=== PATIENT | male | born 1965 ===

== ENCOUNTER 2017-04-14 10:41 | Emergency (ER) | payer BC ==
[2017-04-14 10:53] VITALS: BP 119/69; PULSE 59; RESP 20; TEMP 98.6; O2SAT 98; BMI 23.3
--- NOTE | 2017-04-14 11:30 | ED PDOC ---
HPI: General Adult Chief Complaint (Provider): Facial pain, sinus pressure, and congestion History Per: Patient History/Exam Limitations: no limitations Onset/Duration Of Symptoms: Other (2 weeks) Additional Complaint(s): Patient is a 52 y/o male presenting to the emergency department for facial pain , sinus pressure, and congestion ongoing for two weeks with associated runny nose, mild headache, and malaise. Denies fever, chest pain, shortness of breath , and other complaints. PCP: none provided. Past Medical History Reviewed: Historical Data, Nursing Documentation, Vital Signs Vital Signs: Last Vital Signs Temp 98.6 F 04/14/17 10:52 Pulse 59 L 04/14/17 10:52 Resp 20 04/14/17 10:52 BP 119/69 04/14/17 10:52 Pulse Ox 98 04/14/17 11:41 - Medical History PMH: Denies: Chronic Kidney Disease - Surgical History Surgical History: Appendectomy - Family History Family History: States: Unknown Family Hx - Social History Alcohol: None Drugs: Denies - Immunization History Hx Influenza Vaccination: Yes - Home Medications Home Medications: Ambulatory Orders Medication Instructions Recorded Ibuprofen [Motrin] 600 mg PO Q6 PRN #15 tab 08/26/15 Ciprofloxacin 0.3% [Ciloxan 0.3% 1 drop BOTHEYES BID #1 bottle 11/04/15 Ophth SOLN] Naproxen [Naprosyn] 500 mg PO Q12H #20 tab 12/22/15 Cyclobenzaprine [Cyclobenzaprine 10 mg PO BID #15 tab 04/28/16 HCl] Ibuprofen [Motrin Tab] 600 mg PO Q6 #30 tab 04/28/16 traMADol [Ultram] 50 mg PO Q6 #16 tab 08/04/16 Ibuprofen [Motrin] 600 mg PO Q8 PRN #21 tab 09/16/16 Amoxicillin/Clavulanate [Augmentin 1 tab PO BID #14 tab 04/14/17 875 MG-125 MG] Fexofenadine/Pseudoephedrine 1 each PO BID PRN #14 tab.er.12h 04/14/17 [Alexandra-D 12 Hour Tablet] Fluticasone Propionate [Flonase 9.9 ml NS DAILY #1 spray.susp 04/14/17 Allergy Relief] - Allergies Allergies/Adverse Reactions: Allergies Allergy/AdvReac Type Severity Reaction Status Date / Time No Known Allergies Allergy Verified 08/04/16 21:51 Review of Systems ROS Statement: Except As Marked, All Systems Reviewed And Found Negative Constitutional: Positive for: Malaise. Negative for: Fever ENT: Positive for: Nose Congestion (and rhinorrhea), Other (Sinus pressure) Cardiovascular: Negative for: Chest Pain Respiratory: Negative for: Shortness of Breath Musculoskeletal: Positive for: Other (Facial pain) Neurological: Positive for: Headache (mild) Physical Exam - Reviewed Nursing Documentation Reviewed: Yes Vital Signs Reviewed: Yes - Physical Exam Appears: Positive for: Non-toxic, No Acute Distress Head Exam: Positive for: ATRAUMATIC, NORMAL INSPECTION, NORMOCEPHALIC Skin: Positive for: Normal Color, Warm, Dry Eye Exam: Positive for: Normal appearance ENT: Positive for: TM Is/Are (have fluid behind, bilaterally, mild), Pharyngeal Erythema (mild), Other (bilateral nares have purulent congestion with inflamed turbanance) Neck: Positive for: Normal, Painless ROM, Supple Cardiovascular/Chest: Positive for: Regular Rate, Rhythm. Negative for: Murmur Respiratory: Positive for: Normal Breath Sounds. Negative for: Accessory Muscle Use, Respiratory Distress Gastrointestinal/Abdominal: Positive for: Normal Exam, Soft. Negative for: Tenderness Extremity: Positive for: Normal ROM. Negative for: Pedal Edema Neurologic/Psych: Positive for: Alert, Oriented (x3) - ECG O2 Sat by Pulse Oximetry: 98 (RA) Pulse Ox Interpretation: Normal Medical Decision Making Medical Decision Making: Time: 11:15 Initial impression: Congestion Initial plan: Treat for sinusitis and follow up with ENT. 11:30 Upon provider reevaluation patient is feeling better, is medically stable, and requires no further treatment in the ED at this time. Patient will be discharged with Rx for Augmentin, Alexandra, and Flonase. Counseling was provided and all questions were answered regarding diagnosis and need for follow up with Dr. Yaron Lanier. There is agreement to discharge plan. Clinical impression: Sinusitis Scribe Attestation: Documented by Rossana Multani, acting as a scribe for Brendan Conde DO. Provider Scribe Attestation: All medical record entries made by the Scribe were at my direction and personally dictated by me. I have reviewed the chart and agree that the record accurately reflects my personal performance of the history, physical exam, medical decision making, and the department course for this patient. I have also personally directed, reviewed, and agree with the discharge instructions and disposition. Disposition - Clinical Impression Clinical Impression: Sinusitis - Patient ED Disposition Is Patient to be Admitted: No Counseled Patient/Family Regarding: Diagnosis, Need For Followup, Rx Given - Disposition Referrals: Yaron Lanier MD [Staff Provider] - Disposition: Routine/Home Disposition Time: 11:30 Condition: STABLE Additional Instructions: See ENT doctor if symptoms do not improve. Take medications as directed. Prescriptions: Amoxicillin/Clavulanate [Augmentin 875 MG-125 MG] 1 tab PO BID #14 tab Fexofenadine/Pseudoephedrine [Alexandra-D 12 Hour Tablet] 1 each PO BID PRN #14 tab.er.12h PRN Reason: Allergy Symptoms Fluticasone Propionate [Flonase Allergy Relief] 9.9 ml NS DAILY #1 spray.susp Instructions: Rhinosinusitis (ED) Forms: [employer] (Kyrgyz)
== END 2017-04-14 11:47 | disposition home or self-care (01) ==
LOC: H.ER 10:41
DX: J32.9 Chronic sinusitis, unspecified (principal)

== ENCOUNTER 2017-04-29 13:22 | Emergency (ER) | payer BC ==
[2017-04-29 13:22] VITALS: BMI 23.3
[2017-04-29 13:35] VITALS: BP 119/71; PULSE 61; RESP 16; TEMP 98.4; O2SAT 99
--- NOTE | 2017-04-29 14:01 | ED PDOC ---
Upper Extremity Pain/Injury Time Seen by Provider: 04/29/17 13:38 Chief Complaint (Nursing): Upper Extremity Problem/Injury Chief Complaint (Provider): Right wrist pain History Per: Patient History/Exam Limitations: no limitations Onset/Duration Of Symptoms: Other (2-3 weeks) Current Symptoms Are (Timing): Still Present Additional Complaint(s): Patient is a 52 y/o male with no significant past medical history presenting to the emergency department for worsening right wrist pain ongoing for 2-3 weeks with decreased range of motion. Notes taking Motrin this morning with no significant relief of pain. Denies injuries, fall, or other complaints. PCP: Dr. Rui Kulkarni Past Medical History Reviewed: Historical Data, Nursing Documentation, Vital Signs Vital Signs: Last Vital Signs Temp 98.4 F 04/29/17 13:32 Pulse 61 04/29/17 13:32 Resp 16 04/29/17 13:32 BP 119/71 04/29/17 13:32 Pulse Ox 99 04/29/17 13:32 - Medical History PMH: No Chronic Diseases, Chronic Kidney Disease - Surgical History Surgical History: Appendectomy - Family History Family History: States: No Known Family Hx - Living Arrangements Living Arrangements: With Family - Social History Current smoker - smoking cessation education provided: No Alcohol: None Drugs: Denies - Home Medications Home Medications: Ambulatory Orders Medication Instructions Recorded Ibuprofen [Motrin] 600 mg PO Q6 PRN #15 tab 08/26/15 Ciprofloxacin 0.3% [Ciloxan 0.3% 1 drop BOTHEYES BID #1 bottle 11/04/15 Ophth SOLN] Naproxen [Naprosyn] 500 mg PO Q12H #20 tab 12/22/15 Cyclobenzaprine [Cyclobenzaprine 10 mg PO BID #15 tab 04/28/16 HCl] Ibuprofen [Motrin Tab] 600 mg PO Q6 #30 tab 04/28/16 traMADol [Ultram] 50 mg PO Q6 #16 tab 08/04/16 Ibuprofen [Motrin] 600 mg PO Q8 PRN #21 tab 09/16/16 Amoxicillin/Clavulanate [Augmentin 1 tab PO BID #14 tab 04/14/17 875 MG-125 MG] Fexofenadine/Pseudoephedrine 1 each PO BID PRN #14 tab.er.12h 04/14/17 [Alexandra-D 12 Hour Tablet] Fluticasone Propionate [Flonase 9.9 ml NS DAILY #1 spray.susp 04/14/17 Allergy Relief] Ibuprofen [Motrin Tab] 800 mg PO Q8 PRN #20 tab 04/29/17 - Allergies Allergies/Adverse Reactions: Allergies Allergy/AdvReac Type Severity Reaction Status Date / Time No Known Allergies Allergy Verified 08/04/16 21:51 Review of Systems ROS Statement: Except As Marked, All Systems Reviewed And Found Negative Musculoskeletal: Positive for: Hand Pain (right wrist pain) Physical Exam - Reviewed Nursing Documentation Reviewed: Yes Vital Signs Reviewed: Yes - Physical Exam Appears: Positive for: Well, Non-toxic, No Acute Distress Head Exam: Positive for: NORMOCEPHALIC Skin: Positive for: Normal Color, Warm, Dry Eye Exam: Positive for: Normal appearance Neck: Positive for: Normal Extremity: Positive for: Normal ROM (to fingers on right hand), Tenderness ( right wrist with decreased range of motion, no snuff box tenderness). Negative for: Pedal Edema, Swelling Neurologic/Psych: Positive for: Alert, Oriented (x3) - ECG O2 Sat by Pulse Oximetry: 99 (RA) Pulse Ox Interpretation: Normal - Other Rad Right wrist x-ray X-Ray: Interpreted by Me, Viewed By Me X-Ray Interpretation: no fx, no dis Medical Decision Making Medical Decision Making: Time: 13:59 Initial impression: Right wrist pain Initial plan: Tylenol 975 mg PO Motrin 600 mg PO Right Wrist X-ray Reevaluation Patient aware that x-rays negative. Splint was applied. Prescription given for Motrin. Patient instructed to follow up with PMD or orthopedist, referral provided. Scribe Attestation: Documented by Rossana Multani, acting as a scribe for OBINNA Hernandez. Provider Scribe Attestation: All medical record entries made by the Scribe were at my direction and personally dictated by me. I have reviewed the chart and agree that the record accurately reflects my personal performance of the history, physical exam, medical decision making, and the department course for this patient. I have also personally directed, reviewed, and agree with the discharge instructions and disposition. Procedures - Splinting Location: right wrist Pre-Made Type: velcro Pre-Proc Neuro Vasc Exam: normal Post-Proc Neuro Vasc Exam: normal Disposition - Clinical Impression Clinical Impression: Wrist pain - Patient ED Disposition Is Patient to be Admitted: No Counseled Patient/Family Regarding: Studies Performed, Diagnosis, Need For Followup, Rx Given - Disposition Referrals: Lillie Dominguez MD [Staff Provider] - Rui Kulkarni MD [Medical Doctor] - Disposition: Routine/Home Disposition Time: 14:33 Condition: STABLE Additional Instructions: Ice and rest the affected area. Take prescription meds for pain as needed. Follow up with primary doctor or orthopedist for any persistent symptoms. Prescriptions: Ibuprofen [Motrin Tab] 800 mg PO Q8 PRN #20 tab PRN Reason: Pain, Moderate (4-7) Instructions: Wrist Sprain (ED) Forms: [employer] (Divehi)
--- NOTE | 2017-04-29 14:28 | RAD ---
PROCEDURE: Right Wrist Radiographs. HISTORY: pain for 3 weeks COMPARISON: None. FINDINGS: BONES: Bone alignment and mineralization are normal. There is no acute fracture or bone destruction. JOINTS: Normal. No dislocation. SOFT TISSUES: Normal. OTHER FINDINGS: None. IMPRESSION: No acute fracture, dislocation or significant degenerative osteoarthrosis.
== END 2017-04-29 15:10 | disposition home or self-care (01) ==
LOC: H.ER 13:22
DX: M25.531 Pain in right wrist (principal)

== ENCOUNTER 2017-08-05 07:33 | Emergency (ER) | payer BC ==
[2017-08-05 07:36] VITALS: BMI 24.0
[2017-08-05 07:38] VITALS: BP 122/74; PULSE 60; RESP 20; TEMP 97.6; O2SAT 98
--- NOTE | 2017-08-05 08:14 | ED PDOC ---
HPI: Headache Time Seen by Provider: 08/05/17 07:51 Chief Complaint (Nursing): Trauma Chief Complaint (Provider): Trauma History Per: Patient History/Exam Limitations: no limitations Current Symptoms Are (Timing): Still Present Additional Complaint(s): 52 year old male presents to the emergency department with a worsening headache after playing basketball, falling, and hitting his head on the ground 2 days ago. Associated with dizziness and mild neck pain. Denies focal weakness, vomiting, incoordination, back pain, head pain, loss of consciousness or any other complaints. Past Medical History Reviewed: Historical Data, Nursing Documentation, Vital Signs Vital Signs: Last Vital Signs Temp 97.6 F 08/05/17 07:36 Pulse 60 08/05/17 07:36 Resp 20 08/05/17 07:36 BP 122/74 08/05/17 07:36 Pulse Ox 98 08/05/17 07:36 - Medical History PMH: No Chronic Diseases Denies: Chronic Kidney Disease - Surgical History Surgical History: Appendectomy - Family History Family History: States: Unknown Family Hx - Social History Current smoker - smoking cessation education provided: No Alcohol: None Drugs: Denies - Immunization History Hx Influenza Vaccination: Yes - Home Medications Home Medications: Ambulatory Orders Medication Instructions Recorded Naproxen [Naprosyn] 500 mg PO BID PRN #14 tablet 08/05/17 - Allergies Allergies/Adverse Reactions: Allergies Allergy/AdvReac Type Severity Reaction Status Date / Time No Known Allergies Allergy Verified 08/05/17 07:43 Review of Systems Constitutional: Negative for: Other (Loss of consciousness) Physical Exam - Reviewed Nursing Documentation Reviewed: Yes Vital Signs Reviewed: Yes - Physical Exam Appears: Positive for: Non-toxic, No Acute Distress Head Exam: Positive for: ATRAUMATIC (Tenderness to the occipital scalp region. No scalp hematoma noted.), NORMOCEPHALIC Skin: Positive for: Normal Color, Warm, Dry Eye Exam: Positive for: Normal appearance, PERRL (Pupils are 2 ml and symmetrical) Neck: Positive for: Pain On Movement Of Neck (Paraspinal neck tenderness ) Cardiovascular/Chest: Positive for: Regular Rate, Rhythm. Negative for: Murmur Respiratory: Positive for: Normal Breath Sounds. Negative for: Accessory Muscle Use, Respiratory Distress Gastrointestinal/Abdominal: Positive for: Normal Exam, Soft. Negative for: Tenderness Extremity: Positive for: Normal ROM. Negative for: Tenderness, Pedal Edema Neurologic/Psych: Positive for: Alert, Oriented (x3) - ECG O2 Sat by Pulse Oximetry: 98 (RA) Pulse Ox Interpretation: Normal Medical Decision Making Medical Decision Making: Time: 753 Initial Impression: Headache status post fall Initial Plan: --Tylenol 650 mg PO --Cervical Spine CT --Head CT --Reevaluation Accession No. : [id number] Patient Name / ID : SHIKHA Dumont [id number] Exam Date : 08/05/2017 08:36:42 ( Approved ) Study Comment : Sex / Age : M / 52Y Creator : Simon Garner MD Dictator : Simon Garner MD Torch Shearer : Medical Charge Entry Specialist : Simon Garner MD Approver2 : Report Date : 08/05/2017 09:19:15 My Comment : PROCEDURE: CT HEAD WITHOUT CONTRAST. HISTORY: r/o ICH COMPARISON: 03/15/2011 TECHNIQUE: Axial computed tomography images were obtained through the head/brain without intravenous contrast. Radiation dose: Total exam DLP = 887.58 mGy-cm. This CT exam was performed using one or more of the following dose reduction techniques: Automated exposure control, adjustment of the mA and/or kV according to patient size, and/or use of iterative reconstruction technique. FINDINGS: HEMORRHAGE: No intracranial hemorrhage. BRAIN: No mass effect or edema. No atrophy or chronic microvascular ischemic changes. VENTRICLES: Unremarkable. No hydrocephalus. CALVARIUM: Unremarkable. PARANASAL SINUSES: Unremarkable as visualized. No significant inflammatory changes. MASTOID AIR CELLS: Unremarkable as visualized. No inflammatory changes. OTHER FINDINGS: None. IMPRESSION: Normal CT of the Head. No intracranial hemorrhage. Accession No. : [id number] Patient Name / ID : SHIKHA DERAS / [id number] Exam Date : 08/05/2017 08:38:54 ( Approved ) Study Comment : Sex / Age : M / 52Y Creator : Simon Garner MD Dictator : Simon Garner MD Torch Shearer : Medical Charge Entry Specialist : Simon Garner MD Approver2 : Report Date : 08/05/2017 09:26:20 My Comment : This report is currently processing and HAS NOT BEEN OFFICIALLY SIGNED BY THE PHYSICIAN - ESTIMATED TIME OF APPROVAL IS 08/05/2017 09:31. PROCEDURE: CT Cervical Spine without contrast HISTORY: Fall COMPARISON: None available. TECHNIQUE: Axial computed tomography images were obtained of the cervical spine without the use of intravenous contrast. Coronal and sagittal reformatted images were created and reviewed. Radiation dose: Total exam DLP = 431.78 mGy-cm. This CT exam was performed using one or more of the following dose reduction techniques: Automated exposure control, adjustment of the mA and/or kV according to patient size, and/or use of iterative reconstruction technique. FINDINGS: VERTEBRAE: Minimal compression deformity of the C4 through 6 vertebral bodies of indeterminate age. Normal vertebral alignment is maintained. There is straightening of the normal lordotic curvature indicating possible muscular spasm. Of the atlantoaxial articulation and odontoid process are intact. DISCS/SPINAL CANAL/NEURAL FORAMINA: Narrowing of the C5-6 and C6-7 intervertebral disc spaces is noted. The remaining disc spaces are maintained in height. There is mild central spinal stenosis at C3-4 and C4-5. There is central spinal stenosis noted at C5-6 and C6-7 with AP diameter of the canal measuring 9 mm and 8 mm, respectively at these levels. There is moderate foraminal stenosis on the right side at C5-6. PARASPINAL SOFT TISSUES: Unremarkable. OTHER FINDINGS: None. IMPRESSION: Mild compression deformity of the C4 through C6 vertebral bodies of indeterminate age. A significant central canal stenosis at C5-6 and C6-7. Multilevel degenerative disc disease. No definite acute fracture. Time: 0930 Upon provider reevaluation patient is feeling better, is medically stable, and requires no further treatment in the ED at this time. Patient will be discharged home with Rx for Naprosyn 500 mg. Counseling was provided and all questions were answered regarding diagnosis and need for follow up with Dr. Alan Browne MD and Dr. Dennys Mccormick MD. There is agreement to discharge plan. Return if symptoms persist or worsen. Clinical Impression: Head injury and concussion Scribe~Attestation: Documented by Adamaris Butterfield, acting as a scribe for Brendan Conde DO. Provider Scribe~Attestation: All medical record entries made by the Scribe were at my direction and personally dictated by me. I have reviewed the chart and agree that the record accurately reflects my personal performance of the history, physical exam, medical decision making, and the department course for this patient. I have also personally directed, reviewed, and agree with the discharge instructions and disposition. Disposition - Clinical Impression Clinical Impression: Head injury, Concussion - Patient ED Disposition Is Patient to be Admitted: No Counseled Patient/Family Regarding: Studies Performed, Diagnosis, Need For Followup, Rx Given - Disposition Referrals: Alan Browne MD [Staff Provider] - Dennys Mccormick MD [Staff Provider] - Disposition: Routine/Home Disposition Time: 09:30 Condition: STABLE Additional Instructions: Your CT of the neck revealed likely old deformity of your vertebral bodies, this is causing stenosis (narrowing) of your spinal cord which may cause pain or if left un-addressed could cause nerve damage or even paralysis. Please see spinal specialist and neurologist for further testing as soon as possible. Avoid athletics or injury until neck is evaluated. Return to ER for any worse or new symptoms, weakness, numbness, or any concern. Espanol: La tomografa computarizada del diamond revel tyra posible deformidad de los cuerpos vertebrales, que est causando estenosis (estrechamiento) de la mdula mcginnis que puede causar dolor o, si no se aborda, podra causar anny a los nervios o incluso parlisis. Por favor, consulte al especialista mcginnis y al neurlogo para realizar ms pruebas lo antes posible. Evite atletismo o lesiones hasta que se evale el diamond. Regrese a la filomena de emergencias para cualquier sntoma o debilidad peores o nuevos, debilidad, entumecimiento o cualquier preocupaci Prescriptions: Naproxen [Naprosyn] 500 mg PO BID PRN #14 tablet PRN Reason: Pain, Moderate (4-7) Instructions: Concussion (ED), Head Injury (ED), Cervical Spinal Stenosis (ED) Forms: [employer] (Bermudian) Print Language: AMHARIC
--- NOTE | 2017-08-05 09:20 | CT ---
PROCEDURE: CT HEAD WITHOUT CONTRAST. HISTORY: r/o ICH COMPARISON: 03/15/2011 TECHNIQUE: Axial computed tomography images were obtained through the head/brain without intravenous contrast. Radiation dose: Total exam DLP = 887.58 mGy-cm. This CT exam was performed using one or more of the following dose reduction techniques: Automated exposure control, adjustment of the mA and/or kV according to patient size, and/or use of iterative reconstruction technique. FINDINGS: HEMORRHAGE: No intracranial hemorrhage. BRAIN: No mass effect or edema. No atrophy or chronic microvascular ischemic changes. VENTRICLES: Unremarkable. No hydrocephalus. CALVARIUM: Unremarkable. PARANASAL SINUSES: Unremarkable as visualized. No significant inflammatory changes. MASTOID AIR CELLS: Unremarkable as visualized. No inflammatory changes. OTHER FINDINGS: None. IMPRESSION: Normal CT of the Head. No intracranial hemorrhage.
--- NOTE | 2017-08-05 09:27 | CT ---
PROCEDURE: CT Cervical Spine without contrast HISTORY: Fall COMPARISON: None available. TECHNIQUE: Axial computed tomography images were obtained of the cervical spine without the use of intravenous contrast. Coronal and sagittal reformatted images were created and reviewed. Radiation dose: Total exam DLP = 431.78 mGy-cm. This CT exam was performed using one or more of the following dose reduction techniques: Automated exposure control, adjustment of the mA and/or kV according to patient size, and/or use of iterative reconstruction technique. FINDINGS: VERTEBRAE: Minimal compression deformity of the C4 through 6 vertebral bodies of indeterminate age. Normal vertebral alignment is maintained. There is straightening of the normal lordotic curvature indicating possible muscular spasm. Of the atlantoaxial articulation and odontoid process are intact. DISCS/SPINAL CANAL/NEURAL FORAMINA: Narrowing of the C5-6 and C6-7 intervertebral disc spaces is noted. The remaining disc spaces are maintained in height. There is mild central spinal stenosis at C3-4 and C4-5. There is central spinal stenosis noted at C5-6 and C6-7 with AP diameter of the canal measuring 9 mm and 8 mm, respectively at these levels. There is moderate foraminal stenosis on the right side at C5-6. PARASPINAL SOFT TISSUES: Unremarkable. OTHER FINDINGS: None. IMPRESSION: Mild compression deformity of the C4 through C6 vertebral bodies of indeterminate age. A significant central canal stenosis at C5-6 and C6-7. Multilevel degenerative disc disease. No definite acute fracture.
== END 2017-08-05 10:00 | disposition home or self-care (01) ==
LOC: H.ER 07:33
DX: S06.0X0A Concussion without loss of consciousness, initial encounter (principal); W22.8XXA Striking against or struck by other objects, initial encounter; Y93.67 Activity, basketball; M48.02 Spinal stenosis, cervical region

== ENCOUNTER 2017-08-22 07:36 | Emergency (ER) | payer BC ==
[2017-08-22 07:36] VITALS: BMI 24.0
[2017-08-22 07:52] VITALS: BP 148/76; PULSE 60; RESP 16; TEMP 98.9; O2SAT 99
--- NOTE | 2017-08-22 08:01 | ED PDOC ---
HPI: General Adult Time Seen by Provider: 08/22/17 07:39 Chief Complaint (Nursing): ENT Problem History Per: Patient History/Exam Limitations: no limitations Onset/Duration Of Symptoms: Other (x 1 week) Current Symptoms Are (Timing): Still Present Additional History Per: Prior Records Additional Complaint(s): Heamnt is a 52 year old male who presents to the emergency department complaining of left TMJ pain after injury. Patient was seen here last week. Both CT head and CT spine were (-). Patient was prescribed Naprosyn, but states he lost prescription. Pain worse when opening and closing jaw. No fever. PMD: Clemntino O, [place] Past Medical History Reviewed: Historical Data, Nursing Documentation, Vital Signs Vital Signs: Last Vital Signs Temp 98.9 F 08/22/17 07:50 Pulse 60 08/22/17 07:50 Resp 16 08/22/17 07:50 BP 148/76 08/22/17 07:50 Pulse Ox 99 08/22/17 08:13 - Medical History PMH: No Chronic Diseases Denies: Chronic Kidney Disease - Surgical History Surgical History: Appendectomy - Family History Family History: States: Unknown Family Hx - Social History Current smoker - smoking cessation education provided: No Alcohol: None Drugs: Denies - Immunization History Hx Influenza Vaccination: Yes - Home Medications Home Medications: Ambulatory Orders Medication Instructions Recorded Naproxen [Naprosyn] 500 mg PO BID PRN #14 tablet 08/05/17 Naproxen [Naprosyn] 500 mg PO Q12H #20 tab 08/22/17 - Allergies Allergies/Adverse Reactions: Allergies Allergy/AdvReac Type Severity Reaction Status Date / Time No Known Allergies Allergy Verified 08/05/17 07:43 Review of Systems ROS Statement: Except As Marked, All Systems Reviewed And Found Negative Constitutional: Negative for: Fever ENT: Positive for: Other (Left TMJ Pain after injury) Physical Exam - Reviewed Nursing Documentation Reviewed: Yes Vital Signs Reviewed: Yes - Physical Exam ENT: Positive for: TM Is/Are (clear bilaterally), Other (Tenderness to left TMJ region, able to open and close, no click) Neck: Positive for: Supple Neurologic/Psych: Negative for: Motor/Sensory Deficits - ECG O2 Sat by Pulse Oximetry: 99 (RA) Pulse Ox Interpretation: Normal Medical Decision Making Medical Decision Making: Upon provider evaluation patient is medically stable, and requires no further treatment in the ED at this time. Patient will be discharged with Rx for Naprosyn. Counseling was provided and all questions were answered regarding diagnosis. There is agreement to discharge plan. Return if symptoms persist or worsen. Scribe Attestation: Documented by Anshul Lopez, acting as a scribe for Miguel Arenas MD Provider Scribe Attestation: All medical record entries made by the Scribe were at my direction and personally dictated by me. I have reviewed the chart and agree that the record accurately reflects my personal performance of the history, physical exam, medical decision making, and the department course for this patient. I have also personally directed, reviewed, and agree with the discharge instructions and disposition. Disposition - Clinical Impression Clinical Impression: TMJ pain dysfunction syndrome - Patient ED Disposition Is Patient to be Admitted: No - Disposition Referrals: Michael Dos Santos MD [Staff Provider] - Disposition: Routine/Home Disposition Time: 07:56 Condition: FAIR Prescriptions: Naproxen [Naprosyn] 500 mg PO Q12H #20 tab Instructions: Temporomandibular Disorder (ED) Forms: [employer] (Belizean) Print Language: SINGAPOREAN
== END 2017-08-22 08:12 | disposition home or self-care (01) ==
LOC: H.ER 07:36
DX: M26.601 Right temporomandibular joint disorder, unspecified (principal)

== ENCOUNTER 2017-09-01 22:07 | Emergency (ER) | payer BC ==
[2017-09-01 22:07] VITALS: BMI 24.0
--- NOTE | 2017-09-02 00:59 | ED PDOC ---
HPI: General Adult Time Seen by Provider: 09/02/17 00:11 Chief Complaint (Nursing): Dizziness/Lightheaded Chief Complaint (Provider): Dizziness/Lightheaded History Per: Patient History/Exam Limitations: no limitations Onset/Duration Of Symptoms: Days (x 1) Current Symptoms Are (Timing): Still Present Additional Complaint(s): 52 year old male presents to the ED complaining of dizziness onset, this morning. Reports he feels like the room is spinning and admits it is worse upon movement. Also complains of a mild headache. Did not eat well today. Denies nausea, vomiting, chest pain, sob. PMD: Bob Bonner Past Medical History Reviewed: Historical Data, Nursing Documentation, Vital Signs Vital Signs: Last Vital Signs Temp 98.0 F 09/02/17 04:20 Pulse 81 09/02/17 04:20 Resp 17 09/02/17 04:20 BP 126/69 09/02/17 04:20 Pulse Ox 100 09/02/17 04:20 - Medical History PMH: No Chronic Diseases Denies: Chronic Kidney Disease - Surgical History Surgical History: Appendectomy - Family History Family History: States: Unknown Family Hx - Immunization History Hx Influenza Vaccination: Yes - Home Medications Home Medications: Ambulatory Orders Medication Instructions Recorded Naproxen [Naprosyn] 500 mg PO BID PRN #14 tablet 08/05/17 Naproxen [Naprosyn] 500 mg PO Q12H #20 tab 08/22/17 Meclizine [Meclizine*] 25 mg PO Q6 #30 tab 09/02/17 - Allergies Allergies/Adverse Reactions: Allergies Allergy/AdvReac Type Severity Reaction Status Date / Time No Known Allergies Allergy Verified 09/01/17 23:11 Review of Systems ROS Statement: Except As Marked, All Systems Reviewed And Found Negative Cardiovascular: Negative for: Chest Pain Respiratory: Negative for: Shortness of Breath Gastrointestinal: Negative for: Nausea, Vomiting Neurological: Positive for: Headache (mild), Dizziness (worsened upon movement) Physical Exam - Reviewed Nursing Documentation Reviewed: Yes Vital Signs Reviewed: Yes - Physical Exam Appears: Positive for: Non-toxic, No Acute Distress Head Exam: Positive for: ATRAUMATIC, NORMOCEPHALIC Skin: Positive for: Normal Color, Warm, Dry Eye Exam: Positive for: EOMI, Normal appearance, PERRL Neck: Positive for: Normal, Painless ROM, Supple Cardiovascular/Chest: Positive for: Regular Rate, Rhythm. Negative for: Murmur Respiratory: Positive for: Normal Breath Sounds. Negative for: Respiratory Distress Gastrointestinal/Abdominal: Positive for: Normal Exam, Soft Back: Positive for: Normal Inspection Extremity: Positive for: Normal ROM. Negative for: Deformity Neurologic/Psych: Positive for: Alert, Oriented, Other (Positive [place]-Hallpike ) . Negative for: Motor/Sensory Deficits - ECG O2 Sat by Pulse Oximetry: 99 (RA) Pulse Ox Interpretation: Normal Medical Decision Making Medical Decision Making: Time: 00:20 Impression: peripheral vertigo Initial Plan: --Accucheck --Antivert 50 mg PO --Motrin 600 mg PO Patient is feeling better and will be discharged home. Follow up with PMD. Return to the ED if symptoms persist or worsen. Scribe Attestation: Documented by Diana Bryant, acting as a scribe for Gary Quezada MD. Provider Scribe Attestation: All medical record entries made by the Scribe were at my direction and personally dictated by me. I have reviewed the chart and agree that the record accurately reflects my personal performance of the history, physical exam, medical decision making, and the department course for this patient. I have also personally directed, reviewed, and agree with the discharge instructions and disposition. Disposition - Clinical Impression Clinical Impression: Vertigo, Peripheral vertigo - Patient ED Disposition Is Patient to be Admitted: No - Disposition Referrals: Michael Dos Santos MD [Staff Provider] - Rui Kulkarni MD [Primary Care Provider] - Disposition: Routine/Home Disposition Time: 03:57 Condition: IMPROVED Prescriptions: Meclizine [Meclizine*] 25 mg PO Q6 #30 tab Instructions: Benign Paroxysmal Positional Vertigo (ED) Forms: [employer] (Citizen Of [place]) Print Language: BANGLADESHI
[2017-09-02 04:21] VITALS: BP 126/69; PULSE 81; RESP 17; TEMP 98
[2017-09-02 04:52] VITALS: O2SAT 99
== END 2017-09-02 04:05 | disposition home or self-care (01) ==
LOC: H.ER 22:07
DX: H81.399 Other peripheral vertigo, unspecified ear (principal)

== ENCOUNTER 2017-12-11 00:03 | Emergency (ER) | payer BC ==
[2017-12-11 00:04] VITALS: BMI 24.0
[2017-12-11 01:41] VITALS: BP 105/65; PULSE 60; RESP 14; TEMP 97.8; O2SAT 96
--- NOTE | 2017-12-11 02:20 | ED PDOC ---
HPI: General Adult Time Seen by Provider: 12/11/17 00:45 Chief Complaint (Nursing): ENT Problem History Per: Patient History/Exam Limitations: no limitations Current Symptoms Are (Timing): Still Present Additional Complaint(s): 52-year-old male presents to ED complaining of sore throat, runny nose and itchy eye. Patient reports he self-medicated with some sort of penicillin from [place]. Denies fever, nausea, vomiting, diarrhea. PMD: Delon Mott Past Medical History Reviewed: Historical Data, Nursing Documentation, Vital Signs Vital Signs: Last Vital Signs Temp 97.8 F 12/11/17 01:40 Pulse 60 12/11/17 01:40 Resp 14 12/11/17 01:40 BP 105/65 12/11/17 01:40 Pulse Ox 96 12/11/17 02:26 - Medical History PMH: No Chronic Diseases Denies: Chronic Kidney Disease - Surgical History Surgical History: Appendectomy - Family History Family History: States: Unknown Family Hx - Social History Current smoker - smoking cessation education provided: No Alcohol: None Drugs: Denies - Immunization History Hx Influenza Vaccination: Yes - Home Medications Home Medications: Ambulatory Orders Medication Instructions Recorded Meclizine [Meclizine*] 25 mg PO Q6 #30 tab 09/02/17 Ibuprofen [Motrin Tab] 200 mg PO DAILY 09/16/17 Cetirizine HCl [Zyrtec] 10 mg PO QAM #10 capsule 12/11/17 Fluticasone Propionate [Flonase] 1 spr KRISTIN QAM #1 bottle 12/11/17 - Allergies Allergies/Adverse Reactions: Allergies Allergy/AdvReac Type Severity Reaction Status Date / Time No Known Allergies Allergy Verified 09/16/17 09:41 Review of Systems ROS Statement: Except As Marked, All Systems Reviewed And Found Negative Constitutional: Negative for: Fever Eyes: Positive for: Other (Itchy eyes) ENT: Positive for: Other (Sore throat, Runny nose) Gastrointestinal: Negative for: Nausea, Vomiting, Diarrhea Physical Exam - Reviewed Nursing Documentation Reviewed: Yes Vital Signs Reviewed: Yes - Physical Exam Appears: Positive for: Non-toxic Head Exam: Positive for: ATRAUMATIC, NORMAL INSPECTION, NORMOCEPHALIC Skin: Positive for: Normal Color, Warm, Dry Eye Exam: Positive for: Normal appearance, EOMI, PERRL ENT: Positive for: Other (Post-nasal drip) Neck: Positive for: Normal Cardiovascular/Chest: Positive for: Regular Rate, Rhythm Respiratory: Positive for: Normal Breath Sounds. Negative for: Respiratory Distress Gastrointestinal/Abdominal: Positive for: Normal Exam Back: Positive for: Normal Inspection Extremity: Positive for: Normal ROM. Negative for: Deformity Neurologic/Psych: Positive for: Alert, Oriented (x 3) - ECG O2 Sat by Pulse Oximetry: 96 (RA) Pulse Ox Interpretation: Normal Medical Decision Making Medical Decision Making: Time: 00:59 Impression(s): Seasonal Allergies Plan: - predniSONE Tab Upon provider evaluation patient is medically stable, and requires no further treatment in the ED at this time. Patient will be discharged with Rx for Zyrtec and Flonase. Counseling was provided and all questions were answered regarding diagnosis and need for follow up with PCP. There is agreement to discharge plan. Return if symptoms persist or worsen. Scribe Attestation: Documented by Anshul Lopez, acting as a scribe for Lul Prabhakar MD. Provider Scribe Attestation: All medical record entries made by the Scribe were at my direction and personally dictated by me. I have reviewed the chart and agree that the record accurately reflects my personal performance of the history, physical exam, medical decision making, and the department course for this patient. I have also personally directed, reviewed, and agree with the discharge instructions and disposition. Disposition - Clinical Impression Clinical Impression: Seasonal allergies - Patient ED Disposition Is Patient to be Admitted: No - Disposition Disposition: Routine/Home Disposition Time: 01:40 Condition: STABLE Prescriptions: Cetirizine HCl [Zyrtec] 10 mg PO QAM #10 capsule Fluticasone Propionate [Flonase] 1 spr KRISTIN QAM #1 bottle Instructions: Seasonal Allergies in Adults Forms: [employer] (Cam[place]onian) Print Language: MAURITIAN
== END 2017-12-11 01:40 | disposition home or self-care (01) ==
LOC: H.ER 00:03
DX: J30.2 Other seasonal allergic rhinitis (principal)

== ENCOUNTER 2018-01-24 12:50 | Emergency (ER) | payer BC ==
[2018-01-24 12:55] VITALS: BMI 24.1
[2018-01-24 12:57] VITALS: BP 120/78; PULSE 58; RESP 17; TEMP 98.2; O2SAT 98
--- NOTE | 2018-01-24 13:53 | ED PDOC ---
Upper Extremity Pain/Injury Time Seen by Provider: 01/24/18 12:59 Chief Complaint (Nursing): Finger,Hand,&Wrist Chief Complaint (Provider): Right hand pain, hit with a ball History Per: Patient History/Exam Limitations: no limitations Onset/Duration Of Symptoms: Days (Last night ) Quality: Dull Additional Complaint(s): PT states last night a soft ball was coming towards his face and he up hit arm/ hand up. PT states the ball hit his hand PT took motrin this morning and states that he does not want anything else even tho it did not help the pain. Past Medical History Reviewed: Historical Data, Nursing Documentation, Vital Signs Vital Signs: Last Vital Signs Temp 98.2 F 01/24/18 12:57 Pulse 58 L 01/24/18 12:57 Resp 17 01/24/18 12:57 BP 120/78 01/24/18 12:57 Pulse Ox 98 01/24/18 12:57 - Medical History PMH: No Chronic Diseases Denies: Chronic Kidney Disease - Surgical History Surgical History: Appendectomy - Family History Family History: States: Unknown Family Hx - Immunization History Hx Influenza Vaccination: Yes - Home Medications Home Medications: Ambulatory Orders Medication Instructions Recorded Meclizine [Meclizine*] 25 mg PO Q6 #30 tab 09/02/17 Ibuprofen [Motrin Tab] 200 mg PO DAILY 09/16/17 Cetirizine HCl [Zyrtec] 10 mg PO QAM #10 capsule 12/11/17 Fluticasone Propionate [Flonase] 1 spr KRISTIN QAM #1 bottle 12/11/17 - Allergies Allergies/Adverse Reactions: Allergies Allergy/AdvReac Type Severity Reaction Status Date / Time No Known Allergies Allergy Verified 01/24/18 12:55 Review of Systems ROS Statement: Except As Marked, All Systems Reviewed And Found Negative Constitutional: Negative for: Fever, Chills Musculoskeletal: Positive for: Other Physical Exam - Reviewed Nursing Documentation Reviewed: Yes Vital Signs Reviewed: Yes - Physical Exam Appears: Positive for: Well, Non-toxic, No Acute Distress Head Exam: Positive for: ATRAUMATIC, NORMAL INSPECTION, NORMOCEPHALIC Skin: Positive for: Normal Color, Warm, DRY Eye Exam: Positive for: Normal appearance ENT: Positive for: Normal ENT Inspection Neck: Positive for: Normal, Painless ROM Respiratory: Negative for: Accessory Muscle Use, Respiratory Distress Back: Positive for: Normal Inspection Extremity: Positive for: Normal ROM, Tenderness (Right 5th metacarpal tenderness ), Swelling. Negative for: Deformity Neurologic/Psych: Positive for: Alert, Oriented - ECG O2 Sat by Pulse Oximetry: 98 Pulse Ox Interpretation: Normal Disposition - Clinical Impression Clinical Impression: Hand contusion - Patient ED Disposition Is Patient to be Admitted: No Counseled Patient/Family Regarding: Diagnosis, Need For Followup, Rx Given - Disposition Referrals: Lillie Dominguez MD [Staff Provider] - Disposition: Routine/Home Disposition Time: 13:57 Condition: STABLE Additional Instructions: Ice, elevation, motrin for pain Instructions: Contusion (DC)
--- NOTE | 2018-01-24 14:51 | RAD ---
PROCEDURE: Right Hand Radiographs. HISTORY: right 4-5 metacarpal pain, hit with softball COMPARISON: None. FINDINGS: BONES: No acute fracture. Findings suggests the sequela prior distal 5th metacarpal fracture. JOINTS: Normal. No osteoarthritic changes. SOFT TISSUES: Lateral soft tissue swelling at the level of the proximal 5th metacarpal. OTHER FINDINGS: None. IMPRESSION: Soft tissue swelling without acute articular or osseous abnormality.
== END 2018-01-24 14:54 | disposition home or self-care (01) ==
LOC: H.ER 12:50
DX: S60.221A Contusion of right hand, initial encounter (principal); W21.07XA Struck by softball, initial encounter; Y92.39 Other specified sports and athletic area as the place of occurrence of the external cause